=== PATIENT | female | born 1945 | race Caucasian/White ===

== ENCOUNTER → 2022-03-31 | Outpatient (CLI) | payer SELFPAY ==
[~2022-03-31] MED LIST: ALENDRONATE SOD35 MG PO; IOPAMIDOL 370 MG/ML 100 ML INFUS..BTL INJ ONE; LOSARTAN POTASS50 MG PO; SODIUM CHLORIDE 0.9% 500ML 500 ML ONE
[2022-03-31 13:18] LABS: CREATININE, SERUM 1.03 mg/dL (0.57-1.11)
== END ==
LOC: CT 12:29
PROVIDERS: ATTEND Internal Medicine Interventional Cardiology
DX: R07.9 Chest pain, unspecified (principal); I48.91 Unspecified atrial fibrillation; I25.10 Atherosclerotic heart disease of native coronary artery without angina pectoris; I28.8 Other diseases of pulmonary vessels
CPT/HCPCS: 36415; 71275; 82565; 84520; 96360; J7040; Q9967